=== PATIENT | male | born 1955 | race Caucasian/White ===

== ENCOUNTER 2017-04-27 11:46 | Inpatient (IN) | payer OTHER ==
[~2017-04-27] VITALS: Ht 185.4 cm; Wt 124.7 kg
--- NOTE | ~2017-04-27 | 2DMMODE ---
[facility] [address] [place] [address] 2 D/M-MODE ECHOCARDIOGRAM Name: ARPITA BANKS RAY Room #: 209-P ADM IN M.R.#: [id number] Admission: 04/27/17 Attend Phys: Gonsalo Encinas, Discharge: Date of : 57 Date of Service: 04/27/17 1646 Report #: [id number] THIS REPORT FOR: //name// APPROVED REPORT Study performed: 04/27/2017 14:32:49 EXAM: Comprehensive 2D, Doppler, and color-flow Echocardiogram Patient Location: Echo lab Room #: 209 Status: routine BSA: 2.46 HR: 57 bpm BP: 160/51 mmHg Other Information Study Quality: Good Indications Dyspnea Fatigue Hx HTN 2D Dimensions RVDd: 44.86 mm LVEF(%): 73.81 (>50%) IVSd: 11.03 (7-11mm) LVOT Diam: 22.10 (18-24mm) LVDd: 61.34 mm PWd: 13.46 (7-11mm) Ascending Ao: 30.90 (22-36mm) LVDs: 34.63 (25-40mm) Aortic Root: 34.32 mm IVC: 1.70 mm Loredo's LVEF: 73.81 % Volumes Left Atrial Volume (Systole) Single Plane 4CH: 151.85 mL Single Plane 2CH: 123.19 mL LA ESV Index: 59.00 mL/m2 Aortic Valve AoV Peak Jamal.: 1.52 m/s AO Peak Gr.: 9.19 mmHg LVOT Max P.66 mmHg LVOT Max V: 1.08 m/s MATTHEW Vmax: 2.73 cm2 Mitral Valve E/A Ratio: 0.9 [facility] [place] [address] 2 D/M-MODE ECHOCARDIOGRAM Name: DARRENARPITA FALFURRIAS Room #: 209-[facility] IN ..#: [id number] Admission: 04/27/17 Attend Phys: Gonsalo Encinas, Discharge: Date of : 57 Date of Service: 04/27/17 1646 Report #: [id number] MV Decel. Time: 180.24 ms MV E Max Jamal.: 1.12 m/s MV A Jamal.: 1.20 m/s MV PHT: 52.27 ms IVRT: 87.66 ms Pulmonary Valve PV Peak Jamal.: 1.16 m/s PV Peak Gr.: 5.41 mmHg Pulmonary Vein P Vein S: 0.81 m/s P Vein A: 0.31 m/s P Vein D: 0.61 m/s P Vein A Dur.: 156.9 msec P Vein S/D Ratio: 1.33 Tricuspid Valve TR Peak Jamal.: 2.91 m/s RAP Estimate: 5.00 mmHg TR Peak Gr.: 33.76 mmHg PA Pressure: 39.00 mmHg Left Ventricle The left ventricle is normal size. Mild concentric left ventricular hypertrophy. The left ventricular systolic function is normal. The left ventricular ejection fraction is within the normal range. LVEF is 60-65%. Grade I - abnormal relaxation pattern. Right Ventricle Right ventricle is dilated. The right ventricular systolic function is normal. Atria Left atrium is dilated. Right atrium is dilated. Aortic Valve Aortic valve leaflets are mildly thickened. No aortic regurgitation is present. There is no aortic valvular stenosis. Mitral Valve The mitral valve is normal in structure. There is no mitral valve regurgitation noted. No evidence of mitral valve stenosis. Tricuspid Valve The tricuspid valve is normal in structure. There is trace tricuspid regurgitation. The right atrial pressure is estimated at 5 mmHg. There is mild pulmonary hypertension with an estimated PAP of 39 mmHg. [facility] [address] [place] [address] 2 D/M-MODE ECHOCARDIOGRAM Name: ARPITA BANKS Room #: 209-P [facility] IN M.R.#: [id number] Admission: 04/27/17 Attend Phys: Gonsalo Encinas, Discharge: Date of : 57 Date of Service: 04/27/17 1646 Report #: [id number] Pulmonic Valve The pulmonary valve is normal in structure. There is no pulmonic valvular regurgitation. Great Vessels The aortic root is normal in size. The ascending aorta is normal in size. IVC is normal in size and collapses >50% with inspiration. Pericardium There is no pericardial effusion. <Conclusion> The left ventricle is normal size. Mild concentric left ventricular hypertrophy. LVEF is 60-65%. Grade I - abnormal relaxation pattern. Right ventricle is dilated. Left atrium is dilated. Right atrium is dilated. Aortic valve leaflets are mildly thickened. There is no aortic valvular stenosis. There is no mitral valve regurgitation noted. There is trace tricuspid regurgitation. The right atrial pressure is estimated at 5 mmHg. There is mild pulmonary hypertension with an estimated PAP of 39 mmHg. There is no pericardial effusion. <ELECTRONICALLY SIGNED> By: Gonsalo Encinas MD, FACC 04/27/17 164 45 45 Gonsalo Encinas MD, FACC /INF
--- NOTE | ~2017-04-27 | P ---
[facility] [place] [address] PROCEDURE REPORT Name: ARPITA BANKS Room #: 209-P [facility] IN M.R.#: [id number] Admission: 04/27/17 Attend Phys: Gonsalo Encinas MD, Discharge: Date of : 57 Report #: [id number] THIS REPORT FOR: //name// CC: Gonsalo Encinas MD MERGED WITH [facility] YAMILEX Murillo DO DATE OF SERVICE: 04/28/2017 PROCEDURE #1: EGD with biopsies. PATIENT OF: Dr. Gonsalo Ecninas and Dr. Yamilex Murillo. INDICATION FOR PROCEDURE: This patient has iron deficiency anemia of undetermined etiology. Informed consent for this procedure was obtained prior to the administration of any medication. The risks of the procedure which include bleeding, perforation, infection, complications of sedation and the possibility I could miss something have been explained to the patient and he has indicated his consent by signing. Propofol was slowly titrated before and during this procedure and the colonoscopy that followed it. The Signicatn upper videoscope was introduced through the upper esophageal sphincter and advanced under direct visualization through the second portion of the duodenum. Findings are noted on withdrawal of the scope. Second portion of the duodenum appeared normal. Biopsies were obtained times 2 to evaluate for possible celiac sprue that can cause iron deficiency anemia. Good hemostasis was noted after those biopsies were taken. The duodenal bulb appears normal. Pylorus, normal mucosa. Antrum, normal mucosa. Body, normal mucosa. Cardia and fundus, normal mucosa. Retroflex view did not reveal any hiatal hernia. Scope was withdrawn to the esophagus. Esophageal mucosa appears normal throughout its entirety. The Z-line is appropriately located at the top the gastric folds and appears normal as well. The scope was withdrawn. The patient was turned for colonoscopy. IMPRESSION: Normal EGD to descending duodenum, biopsies obtained for evaluation for celiac sprue as an etiology of iron deficiency anemia. RECOMMENDATIONS: To await the biopsy results and we will proceed with colonoscopy at this time. Thank you very much once again for allowing me to participate in his care, Dr. Encinas. PROCEDURE #2: Colonoscopy with snare polypectomy. [facility] [address] [place] [address] PROCEDURE REPORT Name: ARPITA BANKS DARRYN Room #: 209-P [facility] IN M.R.#: [id number] Admission: 04/27/17 Attend Phys: Gonsalo Encinas MD, Discharge: Date of : 57 Report #: [id number] INDICATION FOR PROCEDURE: Evaluate iron deficiency anemia. Informed consent for this procedure was obtained prior to the administration of any medication. The risks of the procedure which include bleeding, perforation, infection, complications of sedation and the possibility I could miss something have been explained to the patient and he has indicated his consent by signing. Propofol was slowly titrated before and during this procedure for patient comfort by the anesthesia service. An EGD preceded it. A digital rectal exam was performed and prostate exam was performed. I could feel most of the prostate. It was smooth without any asymmetry or nodules. There were no palpable masses or other lesions on digital rectal exam. Then, the Fujinon colonoscope was introduced through the anal sphincter and advanced under direct visualization to the terminal ileum. Findings are noted on withdrawal of the scope. The terminal ileal mucosa appears normal. Cecum, normal mucosa. Ascending colon, normal mucosa. Retroflex view in the ascending colon did not reveal any lesions on the back sides of the folds in the ascending colon. At the hepatic flexure, there was a colon polyp, size 6 mm that was removed in toto with a hot snare and the polyp was lost in the colon and despite exhaustive attempts to try to find it, I never could locate it, so it is not included for pathological consideration. The remaining hepatic flexure appears normal. Transverse colon; in the distal transverse colon, there is a small 4-5 mm polyp removed in toto with hot snare and sent to pathology lab. Good hemostasis was noted after that polypectomy. In the mid transverse colon, there was a 5 mm polyp removed in toto with a hot snare and sent to pathology lab. Good hemostasis was noted after that polypectomy as well. Splenic flexure, normal mucosa. Descending colon, normal mucosa. Sigmoid colon, normal mucosa. In the rectum, there was a small 3-4 mm polyp removed in toto with a regular biopsy forceps and sent to pathology lab. Good hemostasis was noted after that polypectomy as well. Retroflex view in the rectum did not reveal any further abnormalities. The scope was withdrawn. The patient went to the recovery area in stable condition. He tolerated the procedure well. IMPRESSION: Four colon polyps removed as above, 3 submitted to pathology, 1 was lost in the colon and could not be recovered despite exhaustive attempts to do so. RECOMMENDATIONS: To await the path report. I do not think that these polyps would have been a source of blood loss for this patient because their size is too small and they showed no evidence of any type of bleeding on exam today. My recommendations would be to obtain guaiac of stools and if he has blood in his stools, I would recommend that he go for an M2 capsule as an outpatient to evaluate the small intestine for possible sources of blood loss. [facility] [address] [place] [address] PROCEDURE REPORT Name: ARPITA BANKS Room #: 209-P ADM IN M.R.#: [id number] Admission: 04/27/17 Attend Phys: Gonsalo Encinas MD, Discharge: Date of : 57 Report #: [id number] Thank you very much once again for allowing me to participate in his care, Dr. Encinas. <ELECTRONICALLY SIGNED> By: Klaudia Mckeon DO 04/29/17 0955 [id number] [id number] Klaudia Mckeon DO /nt
--- NOTE | ~2017-04-27 | HC ---
[facility] [place] [address] CONSULTATION Name: ARPITA BANKS Room #: 209-P ADM IN M.R.#: [id number] Admission: 04/27/17 Attend Phys: Gonsalo Encinas MD, Discharge: Date of : 57 Report #: [id number] THIS REPORT FOR: //name// CC: Gonsalo Encinas MD [facility] YAMILXE RAMIREZ DATE OF SERVICE: 04/27/2017 PATIENT OF: Dr. Yamilex Ramirez and Dr. Gonsalo nEcinas. CHIEF COMPLAINT: This is a very pleasant 61-year-old white male whom I am asked to evaluate for possible etiologies of normocytic normochromic anemia. The patient has been experiencing gradually worsening dyspnea on exertion and increasing peripheral edema over the last couple of months. He thinks he might have seen some bright red blood in the stool, but he thinks it also could have been a tomato that he ate as there was no reddening of the water in the stool at all from this red spot that he saw. He has also had hypertension that has been more difficult to treat recently, but it is well treated now, he says. The patient says that he is experiencing increasing fatigue. He sleeps a lot more. He has noticed increasing peripheral edema as well. PAST MEDICAL HISTORY: Significant for kidney stones, the dyspnea on exertion has been going on over the last year or so. He has had uneasy feeling. He is not sure what is bothering him, but his chest may tighten up a bit at rest or during activity, it does not seem to be related to anything he is doing. He has noted to have loss of energy over the past year. He has not had any other medical problems aside from his psoriasis, diabetes and his hypertension. He denies hyperlipidemia, but I do not know if this has been checked. He is also somewhat overweight. PAST SURGICAL HISTORY: Significant for removal of kidney stones. ALLERGIES: No known drug allergies. MEDICATIONS: Prior to admission included gemfibrozil 600 mg 2 a day, glipizide 10 mg 2 a day, atorvastatin 20 mg 1 a day, Januvia 100 mg once a day, 2 a day, valsartan 320 mg daily, carvedilol 25 mg twice a day, minoxidil 2.5 mg 4 times a day, Lantus 20 total per day, NovoLog 30 a day, fish oil 1200 mg a day, and vitamin D3 two of those a day. SOCIAL HISTORY: Does not smoke, does not drink alcohol. He has never had a blood transfusion. He is . [place]. 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 FAMILY HISTORY: Negative for colon polyps, colon cancer, Crohn's disease and [address] [address] CONSULTATION Name: ARPITA BANKS Room #: 209-P [facility] IN .R.#: [id number] Admission: 04/27/17 Attend Phys: Gonsalo Encinas MD, Discharge: Date of : 57 Report #: [id number] ulcerative colitis. The patient says his last colonoscopy was about 3-4 years ago and it was normal. PHYSICAL EXAMINATION: GENERAL: Reveals a well-developed 61-year-old white male in no obvious distress at the time of the examination. He is awake, alert, oriented times 4 and cooperative and very pleasant to converse with. HEENT: He is normocephalic and atraumatic and anicteric. HEART: Rate and rhythm are regular with a normal S1 and S2. LUNGS: Clear in all marcos bilaterally. ABDOMEN: Soft. Bowel sounds are present in all 4 quadrants. There is no palpable organomegaly or mass. There is no tenderness, rebound or guarding. EXTREMITIES: Warm and dry. There is no peripheral clubbing, cyanosis, but there is some edema. NEUROLOGIC: He appears grossly intact without any lateralizing signs, but I did not test him extensively. VITAL SIGNS: Blood pressure is 160/51, temperature 37.1, pulse 68 and respirations are 16, pulse ox is 97% on room air. SIGNIFICANT LABORATORY DATA: His complete metabolic profile shows normal electrolytes. BUN is 57, creatinine is 2.4, glucose is 134. Liver enzymes are all normal. His calcium is 10.2, slightly elevated. Albumin is 4.4. His CBC shows a white count of 4.7, hemoglobin 10.2, hematocrit 28.3. MCV, MCH, MCHC, and RDW are all within normal limits, platelet count 240,000. IMPRESSION: 1. Normocytic normochromic anemia, etiology uncertain. The patient denies any hematemesis, hematochezia or melena. He does complain of some mild intermittent dysphagia that is pretty rare, it occurs primarily to bread, but as he said it does not happen often. 2. Symptoms of right heart failure with peripheral edema. 3. Worsening dyspnea on exertion and fatigue. 4. Dysphagia. 5. Mild constipation. 6. Vague chest pain. 7. Decreasing energy levels over the past year. 8. Acute? renal insufficiency versus chronic. 9. Hypertension. The patient had hypertensive emergency earlier this year. 10. Diabetes mellitus. 11. History is psoriasis. 12. History of urolithiasis. 13. Last colonoscopy was 3-4 years ago and was normal. RECOMMENDATIONS: My recommendations were to guaiac his stools. We will prep him for colonoscopy and will do an EGD and a colonoscopy and may be an M2 capsule study on him tomorrow. The M2 capsule will need to be done as an [facility] [address] [place] [address] CONSULTATION Name: BANKSARPITA DARRYN Room #: 209-P ADM IN M.R.#: [id number] Admission: 04/27/17 Attend Phys: Gonsalo Encinas MD, Discharge: Date of : 57 Report #: [id number] outpatient. We will check a TSH level as well. Thank you very much once again for allowing me to participate in his care, Dr. Encinas. <ELECTRONICALLY SIGNED> By: Klaudia Mckeon DO 04/27/17 2227 1432 09 Klaudia Mckeon DO /nt
--- NOTE | ~2017-04-27 | S ---
[facility] [place] [address] SURGICAL PATH RPT PROCEDURE Name: KAVEH BANKS Room #: 209-P DIS IN M.R.#: [id number] Admission: 04/27/17 Date of : 57 Discharge: 04/29/17 Report #: [id number] Path Case #: [id number] PATHOLOGY REPORT COLLECTION DATE: 04/28/2017 RECEIVED DATE: 04/29/2017 SUBMITTING PHYS: Dr. Klaudia Mckeon OTHER PHYS: Dr. Gonsalo Murillo SPECIMEN(S) RECEIVED: A.Duodenal bx, r/o celiac B.Transverse colon polyp C.Distal transverse polyp D.Rectal polyp * * * * * * * * * * * * FINAL DIAGNOSIS: A. "Duodenal bx, R/O celiac", biopsy: - Small bowel mucosa with mild reactive changes including focal gastric metaplasia; no dysplasia seen and no evidence of celiac sprue. B. "Transverse colon polyp", biopsy: - Tubular adenoma; no high grade dysplasia. C. "Distal transverse polyp", biopsy: - Tubular adenoma; no high grade dysplasia (see comment). D. "Rectal polyp", biopsy: - Tubular adenoma; no high grade dysplasia. (CLW:ana m; 05/02/2017) COMMENT: Histologic examination of specimen C is limited by cautery artifact. Clinical and endoscopic correlation is recommended. (CLW:pit; 05/02/2017) PATHOLOGIST: Graciela Najera M.D. REPORT ELECTRONICALLY SIGNED BY: Graciela Najera M.D. DATE/TIME: 05/02/2017 21:22 * * * * * * * * * * * * GROSS PATHOLOGY: A. Received in formalin labeled "Kaveh Banks, duodenal BX," and additionally labeled on the requisition as "R/O celiac," are three segments of gonzales soft tissue measuring 0.9 x 0.3 x 0.2 cm in aggregate dimensions and ranging from 0.2 to 0.5 cm in maximum dimension. The specimen is submitted entirely in cassette A1. [address] [address] SURGICAL PATH RPT PROCEDURE Name: KAVEH BANKS [place] Room #: 209-P DIS IN M.R.#: [id number] Admission: 04/27/17 Date of : 57 Discharge: 04/29/17 Report #: [id number] Path Case #: [id number] B. Received in formalin labeled "Kaveh Banks, transverse colon polyp," is a 0.5 x 0.4 x 0.6 cm polypoid piece of gonzales soft tissue. The margin is inked and the tissue is sectioned perpendicular to the margin and submitted in its entirety in cassette B1. C. Received in formalin labeled "Kaveh Banks, distal transverse polyp," is a segment of gonzales soft tissue measuring 0.5 cm in maximum dimension. The specimen is submitted entirely in cassette C1. D. Received in formalin labeled "Kaveh Banks, rectal polyp," is a segment of gonzales soft tissue measuring 0.4 cm in maximum dimension. The specimen is submitted entirely in cassette D1. (TSD; 04/29/2017) CLINICAL HISTORY: Pre-OP DX: Anemia Post-OP DX: Polyps INITIAL CPT CODE(S): A; 95721 B; 41015 C; 76102 D; 56966 Professional services performed by [facility] at [facility] [address], [place] [address] Technical services performed by [facility] at [address] [place] [address], [facility] [address], [place] [address]. [facility] [address] [place] [address] PHONE: [phone] DIRECTOR: Tavares Rasheed M.D. * * * END OF REPORT * * *
--- NOTE | ~2017-04-27 | HC ---
[facility] [place] [address] CONSULTATION Name: ARPITA BANKS Room #: 209-P [facility] IN M.R.#: [id number] Admission: 04/27/17 Attend Phys: Gonsalo Encinas MD, Discharge: 04/29/17 Date of : 57 Report #: [id number] THIS REPORT FOR: //name// CC: Gonsalo RAMIREZ DATE OF SERVICE: 04/27/2017 REASON FOR CONSULTATION: Elevated creatinine. HISTORY OF PRESENT ILLNESS: This is a 61-year-old male who was admitted through Dr. Encinas's office this afternoon. He has a history of feeling poorly over the past few months. This has included extreme fatigue, dyspnea with exertion, progressive lower extremity edema. He has been exceedingly fatigued. There was concern that this was cardiac in nature, so he saw Dr. Encinas in the office. When it was found that he had an elevated creatinine level, substantial edema, worsening anemia, he was admitted to the hospital. We are asked to see him at this time. In talking to the patient, he states he has had a history of hypertension and diabetes type 2, each dating back over 15 years or more. He has been on treatment for both. Over the past number of months, his blood pressure was actually substantially higher in spite of being on medications. His medication regimen was increased. Most recent addition has been minoxidil, which he is taking 5 mg b.i.d. Since he has been on that, he has had a marked increase in his lower extremity edema. That has necessitated switching from a thiazide diuretic to bumetanide. With that, he is still very edematous. Blood pressure is improved to the 150-160 systolic range. In spite of that, he still has extreme fatigue and exertional dyspnea including exertional intolerance almost any type. From a kidney standpoint, he produced some records showing he had a creatinine level in the 1.5 range about a year ago. He is unaware of proteinuria. He has noted no hematuria or dysuria. No urinary tract infections. No hematuria. He had remote episodes of nephrolithiasis around age 31 and again in the age 44. No recent kidney stones. He also produced copies of a kidney ultrasound that was done within the past month. It showed normal appearing kidneys bilaterally as far as kidney size. He had no nephrolithiasis and no hydronephrosis noted. I have reviewed that record and it is in his hard copy chart. That was dated 09/30/2016. Kidney sizes were 14.0 and 14.6 cm. The patient has not been on any nonsteroidals, no other nephrotoxic exposures. PAST MEDICAL HISTORY: 1. Type 2 diabetes, dating back to at least age 46. He denies knowledge of any retinopathy, might have some peripheral neuropathy mainly in his hands. He has been on a combination of Januvia, glipizide and long and short-acting insulins. [address] [address] CONSULTATION Name: DARRENARPITA DARRYN Room #: 209-P [facility] IN M.R.#: [id number] Admission: 04/27/17 Attend Phys: Gonsalo Encinas MD, Discharge: 04/29/17 Date of : 57 Report #: [id number] 2. Hypertension, also dating back to at least age 46, more difficult to control recently. 3. Remote nephrolithiasis as noted above, age 31 and age 44. 4. In addition, recently he has been found to have anemia and this is a new finding. He is unaware of any history related to that. He reports no blood loss. MEDICATIONS: On admission valsartan mg daily, carvedilol 25 mg b.i.d., bumetanide 2 mg daily, minoxidil 5 mg b.i.d., Januvia 100 mg daily, glipizide 10 mg b.i.d., gemfibrozil 600 mg b.i.d., fish oil 1000 mg daily, vitamin D 1000 units daily, atorvastatin 20 mg daily. ALLERGIES: No known medical allergies. FAMILY HISTORY: Negative for renal disease. SOCIAL HISTORY: The patient is . He is accompanied by his at this time. He lives in [place], [place]. 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 He is a nonsmoker. REVIEW OF SYSTEMS: Mainly positive for those symptoms as noted above including his fatigue, exertional dyspnea. He has had the lower extremity edema. Reports no dysuria or hematuria. Denies nausea or vomiting. Tends towards constipation, but no other bowel symptoms. Reports no palpitations or chest pain. Denies cough. He has trouble sleeping with snoring and readily admits he probably has some apneic episodes. He is fatigued even after 11 hours of sleep, will tend to fall asleep easily. Denies nausea or vomiting. No recent skin rashes, myalgias or arthralgias. No fevers, chills or sweats. Weight has been up a little bit with his edema. PHYSICAL EXAMINATION: GENERAL: Very pleasant 61-year-old male resting comfortably at this point. VITAL SIGNS: Most recent blood pressure 160/51, heart rate 68, temperature 98.0, oxygen saturation 97%. HEENT: Shows pupils are equal and reactive. Sclerae nonicteric. Oral mucosa is negative. NECK: Very large. He has no adenopathy, thyromegaly, JVD or bruit. CHEST: Fairly clear bilaterally in all lung marcos. BACK: Shows no CVA tenderness. HEART: Regular rate and rhythm. I cannot hear a murmur, gallop or rub. ABDOMEN: Somewhat obese, has active bowel sounds, is soft, nontender. No organomegaly or masses are palpable. No distention over the bladder. EXTREMITIES: Show 2+ bilateral lower extremity edema to the knees. He has 2+ peripheral pulses of the dorsalis pedis, posterior tibial, radial and ulnar pulses. [facility] [address] [place] [address] CONSULTATION Name: ARPITA BANKS [place] Room #: 209-P [facility] IN M.R.#: [id number] Admission: 04/27/17 Attend Phys: Gonsalo Encinas MD, Discharge: 04/29/17 Date of : 57 Report #: [id number] LABORATORY DATA: Sodium 141, potassium 4.6, chloride 104, bicarbonate 30, BUN 57, creatinine 2.4, glucose 134. Normal liver function tests. Calcium 10.2, total protein 8.2, albumin 4.4. White count 4.7, hemoglobin 10.2, hematocrit 28.3, platelets 240,000, MCV of 88.6, neutrophils 60, lymphs 23, monos 11, and eosinophils 6. No urine studies available. ASSESSMENT: 1. Elevated creatinine to 2.4. He did bring record showing creatinine level elevated at 1.5 last year. This qualifies him as chronic kidney disease. Most likely he has substantial diabetic nephropathy. His duration of diabetes and hypertension has certainly been long enough to cause that. He has had a recent ultrasound, which showed no obstruction. I do not think we need to repeat that at this time. Main issue is we need to quantify his proteinuria, get his blood pressure controlled. He needs a very low sodium diet. His presentation is of that is likely chronic diabetic nephropathy, which will need long-term management. I have described this in detail to the patient and his . We will work with him going forward. 2. Hypertension, poor control. This is in spite of being large doses of multiple different medications. He is volume overloaded and needs more diuresis. We will certainly want to keep the angiotensin receptor mandy on board. The carvedilol is fine. I think we can do better than the minoxidil as far as his edema. He will need further diuretics to also help with blood pressure control. He needs a much tighter sodium restriction in his diet and we have outlined that. We will target less than 1500 mg daily. 3. Edema. Large part of this is his minoxidil. We will get him off the minoxidil, use some torsemide to help with clearance of his edema and it should clear fairly readily unless he is massively nephrotic. Again, we will verify that with proteinuria check. 4. Longstanding type 2 diabetes mellitus. 5. Anemia. It is normochromic normocytic. We will check iron levels, also check an erythropoietin level. I do not think his creatinine is high enough that the renal disease is the cause of his anemia, but it is worth checking. 6. Likely sleep apnea based upon symptoms. Some point, he will need a sleep study and no doubt would benefit from some nocturnal CPAP. 7. Cardiology evaluation per Dr. Encinas. Certainly, history suggesting left ventricular hypertrophy based on echocardiography, undetermined whether he has any ischemic component. PLAN: 1. Check urine studies including urinalysis and urine protein creatinine ratio. 2. Recheck renal labs. 3. Check iron saturation and ferritin. 4. Check erythropoietin level. 5. He did have 1 mildly elevated calcium level. We will check parathyroid hormone. [address] [address] CONSULTATION Name: ARPITA BANKS Room #: 209-P [facility] IN M.R.#: [id number] Admission: 04/27/17 Attend Phys: Gonsalo Encinas MD, Discharge: 04/29/17 Date of : 57 Report #: [id number] 6. Stop the minoxidil. 7. Continue the losartan and the carvedilol. 8. Switch his diuretic to torsemide. 9. Ultra-low sodium diet once he is back eating orally. He is on liquid diet tonight for colonoscopy and EGD tomorrow. 10. He will need lots of additional education and followup. We will check on him tomorrow and make further plans pending that evaluation. <ELECTRONICALLY SIGNED> By: Olivier Barron MD 05/02/17 [id number] Olivier Barron MD /nt
--- NOTE | ~2017-04-27 | D ---
[facility] [place] [address] DISCHARGE SUMMARY Name: ARPITA BANKS Room #: 209-P ADM IN M.R.#: [id number] Admission: 04/27/17 Attend Phys: Gonsalo Encinas MD, Discharge: Date of : 57 Report #: [id number] THIS REPORT FOR: //name// CC: Klaudia Murillo [facility] COURSE: The patient is a 61-year-old male, patient of Dr. Layton Murillo, admitted with some progressive anemia and renal disease, chronic kidney disease. Some volume overload and approximately 10 pounds. He was brought in, was diuresed, seen by Nephrology and GI and got EGD and colonoscopy without any signs of bleeding, masses. The polyps were sent for biopsy and pending pathology. Nephrology, renal ultrasound, abdominal ultrasound, no real significant findings. He does have significant proteinuria. This appears to be with diabetic nephropathy, but we are awaiting for further studies including paraprotein. He will be discharged to home on glipizide 10 b.i.d., Lipitor 20, Januvia 100, carvedilol 12.5 b.i.d., Lantus insulin, EPA fish oil, vitamin D, and valsartan 320, Demadex 40 mg once a day. Relative salt and fluid restriction, daily weights. Slowly increase regular aerobic activity. He has had no recurrent chest pain or pressure, had some back small stress testing done in [place]. We will perform nuclear stress test here on 05/09/2017 when he follows up with Nephrology here. We are trying to hold off any contrast, his creatinine is now down to 2.2, his hemoglobin is 10.0. DISCHARGE DIAGNOSES: 1. Acute diastolic heart failure. 2. Chronic kidney disease with acute worsening, improved. 3. Longstanding hypertension. 4. Hypercholesterolemia. 5. Anemia, unclear etiology at this point but possibly of chronic disease, GI workup was negative. If he would have occult stools positive then camera for the small bowel as recommended, but currently his stools were negative for heme. He will call with any issues or significant weight gain, the echo Doppler did reveal preserved EF, LVH, diastolic dysfunction grade 1, PA pressure was 40. Thank you for asking me to assist in the care of this patient. By: [id number] Gonsalo Encinas MD, FACC /nt
[2017-04-27 12:25] VITALS: BP 160/51
[2017-04-27 13:04] LABS: ABSOLUTE NEUTROPHILS 2.8 thou/uL (1.4-8.2); BASOPHILS 0.7 % (0.0-2.0); EOSINOPHILS 5.6 % (0.0-3.0); HEMATOCRIT 28.3 % (42.0-52.0); HEMOGLOBIN 10.2 gm/dL (14.0-18.0); LYMPHOCYTES 22.7 % (24.0-44.0); MCH 31.9 pg (26.0-34.0); MCHC 36.1 g/dL (28.0-37.0); MCV 88.6 fL (80.0-100.0); MONOCYTES 11.2 % (1.0-8.0); PLATELET COUNT 240 thou/uL (150-400); POLYS 59.8 % (36.0-66.0); RDW 13.2 % (10.5-14.5); WBC 4.7 thou/uL (4.0-11.0)
[2017-04-27 13:06] LABS: MANUAL DIFF NO
[2017-04-27 13:26] LABS: ALBUMIN 4.4 g/dL (3.4-5.0); CALCIUM 10.2 mg/dL (8.5-10.1); CREATININE 2.4 mg/dL (0.7-1.3); POTASSIUM 4.6 mmol/L (3.5-5.1); TOTAL BILIRUBIN 0.4 mg/dL (<0.1-1.0); TOTAL PROTEIN 8.2 g/dL (6.4-8.2)
[2017-04-27] MEDS ORDERED: GLIPIZIDE 10 MG10 MG PO (16:26)
[2017-04-27] MEDS ORDERED: GEMFIBROZIL 60600 MG PO (16:26)
[2017-04-27] MEDS ORDERED: LIPITOR 20 MG T20 M1 PO (16:27)
[2017-04-27] MEDS ORDERED: JANUVIA100 MG PO (16:27)
[2017-04-27] MEDS ORDERED: VALSARTAN320 MG PO (16:28)
[2017-04-27] MEDS ORDERED: CARVEDILOL25 MG PO (16:28)
[2017-04-27] MEDS ORDERED: MINOXIDIL2.5 MG PO (16:29)
[2017-04-27] MEDS ORDERED: LANTUS100 UNIT/M SUBQ ×2 (16:31→16:32)
[2017-04-27] MEDS ORDERED: NOVOLOG100 UNIT/1 SUBQ (16:33)
[2017-04-27] MEDS ORDERED: VITAMIN D1000 UNI1 PO (16:34)
[2017-04-27] MEDS ORDERED: FISH OIL 1,001000 M2 PO (16:34)
[2017-04-27 20:22] VITALS: BP 163/69
[2017-04-27 23:18] VITALS: BP 149/59
[2017-04-28 03:45] VITALS: BP 127/47
[2017-04-28 03:52] LABS: ALBUMIN 3.9 g/dL (3.4-5.0); CALCIUM 9.4 mg/dL (8.5-10.1); CREATININE 2.2 mg/dL (0.7-1.3); PHOSPHORUS 4.9 mg/dL (2.5-4.9); POTASSIUM 4.4 mmol/L (3.5-5.1)
[2017-04-28 04:25] LABS: CALCIUM 9.5 mg/dL (8.5-10.1); CREATININE 2.4 mg/dL (0.7-1.3)
[2017-04-28 08:10] VITALS: BP 146/69
[2017-04-28 09:14] LABS: URINE BILIRUBIN NEGATIVE (Negative); URINE BLOOD NEGATIVE (Negative); URINE COLOR YELLOW; URINE GLUCOSE-RANDOM* NEGATIVE (Negative); URINE KETONES NEGATIVE (Negative); URINE LEUKOCYTES-REFLEX NEGATIVE (Negative); URINE PROTEIN (DIPSTICK) 1+ (Negative); URINE UROBILINOGEN 0.2 E.U./dl (0.2-1.0)
[2017-04-28 09:18] LABS: PROT/CREAT RATIO 0.8; URINE CREATININE-RANDOM* 86.5 mg/dL; URINE PROTEIN-RANDOM* 68.7 mg/dL (<11.9)
[2017-04-28 09:25] LABS: CASTS None Seen /LPF (None Seen); CRYSTALS None Seen /LPF (None Seen); SQUAMOUS 0-3 Few /LPF (0-3); URINE RBC None Seen /HPF (0-2); URINE WBC-REFLEX None Seen /HPF (0-5)
[2017-04-28 12:00] VITALS: BP 146/59
[2017-04-28 20:09] VITALS: BP 146/65
[2017-04-28 23:10] VITALS: BP 147/49
[2017-04-29 04:11] VITALS: BP 114/57
[2017-04-29 04:15] LABS: HEMATOCRIT 27.5 % (42.0-52.0); HEMOGLOBIN 9.9 gm/dL (14.0-18.0); MCH 31.9 pg (26.0-34.0); MCHC 36.1 g/dL (28.0-37.0); MCV 88.5 fL (80.0-100.0); RBC 3.1 mil/uL (4.50-6.00); RDW 13.1 % (10.5-14.5); WBC 5.6 thou/uL (4.0-11.0)
[2017-04-29 04:25] LABS: ALBUMIN 3.9 g/dL (3.4-5.0); CALCIUM 9.3 mg/dL (8.5-10.1); CREATININE 2.2 mg/dL (0.7-1.3); PHOSPHORUS 4.2 mg/dL (2.5-4.9); POTASSIUM 4.4 mmol/L (3.5-5.1)
[2017-04-29 07:20] VITALS: BP 149/58
[2017-04-29] MEDS ORDERED: DEMADEX20 MG PO ×2 (08:07→08:42)
[2017-04-29] MEDS ORDERED: COREG25 MG PO (08:30)
[2017-04-29 10:54] VITALS: BP 149/58
[2017-05-02 16:08] LABS: A/G RATIO 1.4 (0.7-1.7); ALBUMIN 4.3 g/dL (2.9-4.4); ALPHA 1 0.2 g/dL (0.0-0.4); ALPHA 2 0.9 g/dL (0.4-1.0); GAMMA 0.9 g/dL (0.4-1.8); M-SPIKE Not Observed g/dL (Not Observed)
== END 2017-04-29 12:05 | disposition home or self-care (01) | DRG 291 ==
LOC: 2N 11:46
PROVIDERS: Internal Medicine Cardiovascular Disease; Internal Medicine Nephrology; Nurse Practitioner Adult Health
PROC: 0DB98ZX Excision of Duodenum, Via Natural or Artificial Opening Endoscopic, Diagnostic (ICD-10-PCS; principal; 2017-04-28)
PROC: 0DBL8ZX Excision of Transverse Colon, Via Natural or Artificial Opening Endoscopic, Diagnostic (ICD-10-PCS; principal; 2017-04-28)
PROC: 0DBP8ZX Excision of Rectum, Via Natural or Artificial Opening Endoscopic, Diagnostic (ICD-10-PCS; principal; 2017-04-28)
DX: I13.0 Hypertensive heart and chronic kidney disease with heart failure and stage 1 through stage 4 chronic kidney disease, or unspecified chronic kidney disease (principal); I50.33 Acute on chronic diastolic (congestive) heart failure; N17.9 Acute kidney failure, unspecified; K59.00 Constipation, unspecified; D50.9 Iron deficiency anemia, unspecified; E11.22 Type 2 diabetes mellitus with diabetic chronic kidney disease; E78.5 Hyperlipidemia, unspecified; E78.00 Pure hypercholesterolemia, unspecified; I70.1 Atherosclerosis of renal artery; N18.3 Chronic kidney disease, stage 3 (moderate); D63.1 Anemia in chronic kidney disease; Z79.4 Long term (current) use of insulin; Z79.899 Other long term (current) drug therapy; Z87.442 Personal history of urinary calculi
CPT/HCPCS: 10797; 62110; 70005